=== PATIENT | female | born 1955 | race Caucasian/White ===

== ENCOUNTER → 2021-08-10 | Outpatient (CLI) | payer MEDICARE, OTHER ==
[~2021-08-10] MED LIST: ASPIRIN EC81 MG PO; ATORVASTATIN CA20 MG PO; ENSURE ACTIVE414 ML PO; FERROUS SU300 MG/5 M GT; MULTIVITAM9 MG/15 ML PO; MYCOSTATIN100000 UTS PO
== END ==
LOC: HEART CORB 10:00
DX: I10 Essential (primary) hypertension (principal); I25.2 Old myocardial infarction; R94.31 Abnormal electrocardiogram [ECG] [EKG]
CPT/HCPCS: 93306